=== PATIENT | female | born 1935 | race Two or more races ===

== ENCOUNTER 2021-08-15 13:10 | Inpatient (IN) | payer MEDICARE ==
[~2021-08-15] VITALS: Ht 162.6 cm; Wt 59.9 kg
[2021-08-15] MEDS ORDERED: SODIUM CHLORIDE 0.9% 1,000 ML IV ONE (13:30)
[2021-08-15 14:50] LABS: HEMATOCRIT. 39.9 % (36.0-48.0); HEMOGLOBIN. 13.5 g/dL (12.0-16.0); MEAN CORPUSCULAR HEMOGLOBIN 32.1 pg (28.0-32.0); MEAN CORPUSCULAR VOLUME 95.1 fL (81.0-99.0); MEAN PLATELET VOLUME 8.1 fl (7.4-10.4); PLATELET 259 x1000/uL (130-400); RED CELL DISTRIBUTION WIDTH 12.5 % (11.6-14.6)
[2021-08-15 14:58] LABS: CHLORIDE 105 mEq/L (98-107)
[2021-08-15 15:00] LABS: PROTHROMBIN TIME 10.5 sec (9.6-11.0)
[2021-08-15 15:20] LABS: PLATELET ESTIMATE NORMAL
[2021-08-15] MEDS ORDERED: HYDROCODONE/ACETAMINOPHEN 5/325MG TABLET PO PRN (16:15)
[2021-08-15 19:40] VITALS: BP 109/50
[2021-08-15 20:00] VITALS: BP 104/50
[2021-08-15] MEDS: MORPHINE SULFATE 2 MG/ML CPJ (NOT FOR IM USE) IV PRN (20:44)
[2021-08-15] MEDS ORDERED: CHOL400D2 PO (22:47)
[2021-08-15] MEDS ORDERED: ATOR20TA65 PO (22:47)
[2021-08-16] VITALS: BP 107/51
[2021-08-16 04:00] VITALS: BP 115/51
[2021-08-16 07:03] LABS: CHLORIDE 108 mEq/L (98-107)
[2021-08-16 07:06] LABS: BASOPHILS % 0.4 % (0.0-2.0); EOSINOPHILS % 0.4 % (0.0-5.0); HEMATOCRIT. 35.2 % (36.0-48.0); HEMOGLOBIN. 12.1 g/dL (12.0-16.0); LYMPHOCYTES % 14.7 % (20.0-50.0); MEAN CORPUSCULAR HEMOGLOBIN 33.1 pg (28.0-32.0); MEAN PLATELET VOLUME 8.8 fl (7.4-10.4); MONOCYTES % 9.4 % (2.0-8.0); NEUTROPHILS % 75.1 % (40.0-76.0); PLATELET 227 x1000/uL (130-400); RED BLOOD CELL COUNT 3.66 mill/uL (4.2-5.4); RED CELL DISTRIBUTION WIDTH 12.5 % (11.6-14.6)
[2021-08-16 08:00] VITALS: BP 133/60
[2021-08-16] MEDS ORDERED: INFLUENZA VACCINE 05/PF 0.5 ML SYRINGE IM ONE (10:00)
[2021-08-16] MEDS ORDERED: NALOXONE HCL 0.4MG/ML VIAL IV PRN (18:45)
[2021-08-16 20:00] VITALS: BP 116/59
[2021-08-16] MEDS: MORPHINE SULFATE 2 MG/ML CPJ (NOT FOR IM USE) IV PRN (21:46)
[2021-08-17] VITALS: BP 136/54
[2021-08-17 00:40] LABS: CLARITY URINE CLEAR (CLEAR); COLOR URINE YELLOW (YELLOW); KETONES URINE TRACE (NEGATIVE); LEUKOCYTE ESTERASE URINE NEGATIVE (NEGATIVE); NITRITE URINE NEGATIVE (NEGATIVE); OCCULT BLOOD URINE NEGATIVE (NEGATIVE); PROTEIN URINE NEGATIVE (NEGATIVE); SPECIFIC GRAVITY URINE 1.025 (1.005-1.030)
[2021-08-17] MEDS: MORPHINE SULFATE 2 MG/ML CPJ (NOT FOR IM USE) IV PRN (02:07)
[2021-08-17 04:00] VITALS: BP 135/55
[2021-08-17] MEDS ORDERED: VANCOMYCIN HCL 1 GM/VIAL ONE (06:52)
[2021-08-17] MEDS ORDERED: LIDOCAINE HCL/EPINEPHRINE 1%-EPI 1:100,000 20 ML VIAL ONE (06:52)
[2021-08-17] MEDS ORDERED: SODIUM CHLORIDE 0.9% INJ 10ML FLUSH IVF ONE (06:52)
[2021-08-17] MEDS ORDERED: POLYMYXIN B SULFATE 500000 UNITS/VIAL ONE (06:52)
[2021-08-17] MEDS ORDERED: FENTANYL CITRATE/PF 50MCG/ML 2ML VIAL ONE ×2 (07:33→08:16)
[2021-08-17] MEDS ORDERED: PHENYLEPHRINE HCL 10 MG/ML 1ML (IV VIAL) IV ONE (07:33)
[2021-08-17] MEDS ORDERED: MIDAZOLAM HCL 2 MG/2 ML VIAL ONE (07:33)
[2021-08-17] MEDS ORDERED: PROPOFOL 200MG/20ML VIAL IV ONE (07:34)
[2021-08-17] MEDS ORDERED: SUCCINYLCHOLINE CHLORIDE 200MG/10ML IV ONE (07:34)
[2021-08-17] MEDS ORDERED: ONDANSETRON HCL 4MG/2ML INJ ONE (07:34)
[2021-08-17] MEDS ORDERED: SODIUM CHLORIDE 0.9% 10ML VIAL ONE (07:34)
[2021-08-17] MEDS ORDERED: NEOSTIGMINE METHYLSULFATE 1MG/ML 10 ML VIAL ONE (07:34)
[2021-08-17] MEDS ORDERED: METOCLOPRAMIDE HCL 10MG/2ML VIAL ONE (07:34)
[2021-08-17] MEDS ORDERED: GLYCOPYRROLATE 0.2 MG/ML 2ML VIAL ONE (07:34)
[2021-08-17] MEDS ORDERED: ROCURONIUM BROMIDE 10MG/ML VIAL 5ML IV ONE (07:34)
[2021-08-17] MEDS ORDERED: CEFAZOLIN SODIUM 1000MG/VIAL ONE (07:34)
[2021-08-17] MEDS ORDERED: ROPIVACAINE HCL/PF EPIDURAL 0 ML EPI ONE (07:55)
[2021-08-17] MEDS ORDERED: ROPIVACAINE HCL 10MG/ML 20 ML VIAL EPI ONE (08:00)
[2021-08-17] MEDS ORDERED: LABETALOL HCL 5MG/ML VIAL 20ML IV ONE (08:11)
[2021-08-17] MEDS ORDERED: HYDROCODONE/ACETAMINOPHEN 5/325MG TABLET PO PRN (08:30)
[2021-08-17] MEDS ORDERED: NALOXONE HCL 0.4MG/ML VIAL IV PRN (08:45)
[2021-08-17 11:56] VITALS: BP 108/52
[2021-08-17 16:00] VITALS: BP 98/51
[2021-08-17] MEDS: CEFAZOLIN 2,000 MG in DEXT 5% WATER 100 ML IV SCH (16:44)
[2021-08-17 20:00] VITALS: BP 97/42
[2021-08-18] VITALS (7 sets, daily range): BP systolic 114–132; BP diastolic 45–78
[2021-08-18] MEDS: CEFAZOLIN 2,000 MG in DEXT 5% WATER 100 ML IV SCH ×3 (00:29→16:40)
[2021-08-18 07:27] LABS: BASOPHILS % 0.6 % (0.0-2.0); EOSINOPHILS % 0.8 % (0.0-5.0); HEMATOCRIT. 27.9 % (36.0-48.0); HEMOGLOBIN. 9.8 g/dL (12.0-16.0); LYMPHOCYTES % 13.2 % (20.0-50.0); MEAN CORPUSCULAR HEMOGLOBIN 33.7 pg (28.0-32.0); MEAN CORPUSCULAR VOLUME 95.9 fL (81.0-99.0); MEAN PLATELET VOLUME 8.9 fl (7.4-10.4); MONOCYTES % 11.2 % (2.0-8.0); NEUTROPHILS % 74.2 % (40.0-76.0); PLATELET 185 x1000/uL (130-400); RED BLOOD CELL COUNT 2.91 mill/uL (4.2-5.4); RED CELL DISTRIBUTION WIDTH 12.5 % (11.6-14.6)
[2021-08-18 07:31] LABS: CHLORIDE 106 mEq/L (98-107)
[2021-08-18] MEDS ORDERED: DOCUSATE SODIUM 250MG CAPSULE PO SCH (09:00)
[2021-08-18] MEDS ORDERED: POLYETHYLENE GLYCOL 3350 (17GM) 1 DOSE PACK PO SCH (13:00)
[2021-08-18] MEDS ORDERED: LACTULOSE 20G/30ML UDC PO PRN (13:15)
[2021-08-18] MEDS ORDERED: ENOXAPARIN 40MG/0.4ML SYR SUBCUT SCH (14:00)
[2021-08-18] MEDS ORDERED: FERROUS SULFATE 325MG TABLET PO SCH (17:50)
== END 2021-08-18 23:10 | DRG 481 ==
LOC: ER 13:10 → EDBEDREQ 16:17 → EDBEDREQTM 16:17 → ENRESERV 18:10 → 6EST 19:53
PROVIDERS: ADMIT Internal Medicine; ATTEND Internal Medicine
PROC: 0QS706Z Reposition Left Upper Femur with Intramedullary Internal Fixation Device, Open Approach (ICD-10-PCS; principal; 2021-08-17)
DX: S72.142A Displaced intertrochanteric fracture of left femur, initial encounter for closed fracture (principal); E44.1 Mild protein-calorie malnutrition; W01.0XXA Fall on same level from slipping, tripping and stumbling without subsequent striking against object, initial encounter; Z20.822 Contact with and (suspected) exposure to COVID-19; R26.9 Unspecified abnormalities of gait and mobility; R53.81 Other malaise; E78.5 Hyperlipidemia, unspecified; Y93.89 Activity, other specified; Y99.8 Other external cause status; Z68.22 Body mass index [BMI] 22.0-22.9, adult; Z79.899 Other long term (current) drug therapy; Z82.49 Family history of ischemic heart disease and other diseases of the circulatory system; Y92.098 Other place in other non-institutional residence as the place of occurrence of the external cause
CPT/HCPCS: 36415; 71045; 72170; 73502; 73552; 80048; 80053; 81003; 85025; 86850; 86900; 87426; 90686; 93005; 93306; 97161; 97166; 99285; C1713; J0330; J0690; J1650; J2250; J2270; J2370; J2405; J2704; J2710; J2765; J2795; J3010; J3370; J3490; J7030; J7060

== ENCOUNTER 2021-08-18 23:20 | Inpatient (IN) | payer MEDICARE, OTHER ==
[~2021-08-18] VITALS: Ht 157.5 cm; Wt 59.9 kg
[~2021-08-18 23:20] MED LIST: ATOR20TA65 PO; CHOL400D2 PO
[2021-08-19] VITALS: BP 113/50
[2021-08-19] MEDS ORDERED: MORPHINE SULFATE 2 MG/ML CPJ (NOT FOR IM USE) IV PRN (00:15)
[2021-08-19] MEDS ORDERED: NALOXONE HCL 0.4 MG/ML 1ML VIAL IV PRN (00:15)
[2021-08-19] MEDS ORDERED: HYDROCODONE/ACETAMINOPHEN 5/325MG TABLET PO PRN (00:15)
[2021-08-19] MEDS: CEFAZOLIN 2,000 MG in DEXT 5% WATER 100 ML IV SCH ×2 (02:40→10:13)
[2021-08-19 02:48] VITALS: BP 113/50
[2021-08-19] MEDS: HYDROCODONE/ACETAMINOPHEN 5/325MG TABLET PO PRN ×2 (06:41→23:50)
[2021-08-19 06:56] LABS: BASOPHILS % 0.8 % (0.0-2.0); EOSINOPHILS % 2.1 % (0.0-5.0); HEMATOCRIT. 26.7 % (36.0-48.0); HEMOGLOBIN. 9.2 g/dL (12.0-16.0); LYMPHOCYTES % 16.3 % (20.0-50.0); MEAN CORPUSCULAR HEMOGLOBIN 32.9 pg (28.0-32.0); MEAN CORPUSCULAR VOLUME 95.7 fL (81.0-99.0); MEAN PLATELET VOLUME 8.8 fl (7.4-10.4); MONOCYTES % 11.2 % (2.0-8.0); NEUTROPHILS % 69.6 % (40.0-76.0); PLATELET 200 x1000/uL (130-400); RED BLOOD CELL COUNT 2.79 mill/uL (4.2-5.4); RED CELL DISTRIBUTION WIDTH 12.5 % (11.6-14.6)
[2021-08-19 07:11] LABS: CHLORIDE 107 mEq/L (98-107)
[2021-08-19 08:30] VITALS: BP 112/55
[2021-08-19] MEDS: DOCUSATE SODIUM 250MG CAPSULE PO SCH (09:17)
[2021-08-19] MEDS: FERROUS SULFATE 325MG TABLET PO SCH ×3 (09:18→16:51)
[2021-08-19] MEDS: POLYETHYLENE GLYCOL 3350 (17GM) 1 DOSE PACK PO SCH (09:18)
[2021-08-19] MEDS ORDERED: ENOXAPARIN 40MG/0.4ML SYR SUBCUT SCH (14:00)
[2021-08-19 20:00] VITALS: BP 130/76
[2021-08-20] MEDS: LACTULOSE 20G/30ML UDC PO PRN ×2 (04:25→10:11)
[2021-08-20 06:06] LABS: BASOPHILS % 0.7 % (0.0-2.0); EOSINOPHILS % 2.2 % (0.0-5.0); HEMATOCRIT. 24.5 % (36.0-48.0); HEMOGLOBIN. 8.4 g/dL (12.0-16.0); LYMPHOCYTES % 19.6 % (20.0-50.0); MEAN CORPUSCULAR HEMOGLOBIN 33.2 pg (28.0-32.0); MEAN CORPUSCULAR VOLUME 96.8 fL (81.0-99.0); MEAN PLATELET VOLUME 8.6 fl (7.4-10.4); MONOCYTES % 10.9 % (2.0-8.0); NEUTROPHILS % 66.6 % (40.0-76.0); PLATELET 229 x1000/uL (130-400); RED BLOOD CELL COUNT 2.53 mill/uL (4.2-5.4); RED CELL DISTRIBUTION WIDTH 12.5 % (11.6-14.6)
[2021-08-20 06:13] LABS: CHLORIDE 106 mEq/L (98-107)
[2021-08-20 06:32] LABS: FOLIC ACID (FOLATE) SERUM 16.5 ng/mL (>5.38)
[2021-08-20 06:36] LABS: TOTAL IRON BINDING CAPACITY 175 ug/dL (250-450)
[2021-08-20 08:00] VITALS: BP 114/56
[2021-08-20] MEDS: POLYETHYLENE GLYCOL 3350 (17GM) 1 DOSE PACK PO SCH (10:10)
[2021-08-20] MEDS: FERROUS SULFATE 325MG TABLET PO SCH ×3 (10:10→17:55)
[2021-08-20] MEDS: DOCUSATE SODIUM 250MG CAPSULE PO SCH (10:10)
[2021-08-20] MEDS ORDERED: BISACODYL 10MG SUPP PR NR ×3 (10:30→21:30)
[2021-08-20] MEDS: LACTULOSE 20G/30ML UDC PO SCH ×3 (10:32→17:00)
[2021-08-20] MEDS ORDERED: BISACODYL 10MG SUPP PR ONE (10:45)
[2021-08-20] MEDS ORDERED: LACTULOSE 20G/30ML UDC PO PRN (11:00)
[2021-08-20] MEDS: ASCORBIC ACID 500 MG TABLET PO SCH (12:28)
[2021-08-20] MEDS: CYANOCOBALAMIN 1000MCG/ML VIAL IM SCH (12:28)
[2021-08-20] MEDS: ONDANSETRON 4MG ODT PO PRN (12:28)
[2021-08-20] MEDS: ENOXAPARIN 30MG/0.3ML SYR SUBCUT SCH (14:20)
[2021-08-20 15:58] LABS: CLARITY URINE CLEAR (CLEAR); COLOR URINE YELLOW (YELLOW); KETONES URINE 2+ (NEGATIVE); LEUKOCYTE ESTERASE URINE NEGATIVE (NEGATIVE); NITRITE URINE NEGATIVE (NEGATIVE); OCCULT BLOOD URINE NEGATIVE (NEGATIVE); PH URINE 5.5 (4.5-8.0); PROTEIN URINE TRACE (NEGATIVE); SPECIFIC GRAVITY URINE 1.027 (1.005-1.030)
[2021-08-20 20:00] VITALS: BP 130/90
[2021-08-21 08:00] VITALS: BP 137/89
[2021-08-21] MEDS: FERROUS SULFATE 325MG TABLET PO SCH ×3 (09:00→17:25)
[2021-08-21] MEDS: ONDANSETRON 4MG ODT PO PRN (09:40)
[2021-08-21] MEDS: DOCUSATE SODIUM 250MG CAPSULE PO SCH (09:41)
[2021-08-21] MEDS: CYANOCOBALAMIN 1000MCG/ML VIAL IM SCH (09:41)
[2021-08-21] MEDS: ASCORBIC ACID 500 MG TABLET PO SCH (09:42)
[2021-08-21] MEDS: POLYETHYLENE GLYCOL 3350 (17GM) 1 DOSE PACK PO SCH (09:42)
[2021-08-21] MEDS ORDERED: BISACODYL 10MG SUPP PR PRN (11:15)
[2021-08-21] MEDS ORDERED: BISACODYL 10MG SUPP PR NR (11:15)
[2021-08-21] MEDS: DEXT 5%/0.45% NACL 1000ML 1,000 ML IV SCH ×2 (12:54→13:33)
[2021-08-21] MEDS: ENOXAPARIN 30MG/0.3ML SYR SUBCUT SCH (14:05)
[2021-08-21] MEDS ORDERED: GUAIFENESIN-DM 200MG-20MG/10ML UDC PO PRN (15:30)
[2021-08-21] MEDS: HYDROCODONE/ACETAMINOPHEN 5/325MG TABLET PO PRN (17:24)
[2021-08-21 20:00] VITALS: BP 127/51
[2021-08-21] MEDS: GUAIFENESIN 600MG ER TABLET PO SCH (21:17)
[2021-08-22] MEDS: DEXT 5%/0.45% NACL 1000ML 1,000 ML IV SCH ×2 (04:20→13:28)
[2021-08-22 07:10] LABS: CHLORIDE 107 mEq/L (98-107)
[2021-08-22 07:18] LABS: BASOPHILS % 0.9 % (0.0-2.0); HEMATOCRIT. 24.1 % (36.0-48.0); HEMOGLOBIN. 8.2 g/dL (12.0-16.0); LYMPHOCYTES % 24.2 % (20.0-50.0); MEAN CORPUSCULAR HEMOGLOBIN 33.2 pg (28.0-32.0); MEAN PLATELET VOLUME 8.1 fl (7.4-10.4); MONOCYTES % 12.5 % (2.0-8.0); NEUTROPHILS % 59.4 % (40.0-76.0); PLATELET 288 x1000/uL (130-400); RED BLOOD CELL COUNT 2.46 mill/uL (4.2-5.4); RED CELL DISTRIBUTION WIDTH 12.7 % (11.6-14.6)
[2021-08-22 08:17] VITALS: BP 135/75
[2021-08-22] MEDS: DOCUSATE SODIUM 250MG CAPSULE PO SCH (09:17)
[2021-08-22] MEDS: CYANOCOBALAMIN 1000MCG/ML VIAL IM SCH (09:17)
[2021-08-22] MEDS: POLYETHYLENE GLYCOL 3350 (17GM) 1 DOSE PACK PO SCH (09:17)
[2021-08-22] MEDS: GUAIFENESIN 600MG ER TABLET PO SCH ×2 (09:17→21:44)
[2021-08-22] MEDS: FERROUS SULFATE 325MG TABLET PO SCH ×2 (09:17→13:00)
[2021-08-22] MEDS: ASCORBIC ACID 500 MG TABLET PO SCH (09:17)
[2021-08-22] MEDS ORDERED: POTASSIUM CHLORIDE 20MEQ TABLET SR PO NR (10:15)
[2021-08-22] MEDS: ONDANSETRON 4MG ODT PO PRN (10:54)
[2021-08-22] MEDS: ENOXAPARIN 30MG/0.3ML SYR SUBCUT SCH (14:00)
[2021-08-22] MEDS: METOCLOPRAMIDE HCL 10MG/2ML VIAL IV SCH (18:07)
[2021-08-22 20:00] VITALS: BP 126/67
[2021-08-23] MEDS: METOCLOPRAMIDE HCL 10MG/2ML VIAL IV SCH ×4 (00:25→17:58)
[2021-08-23] MEDS: DEXT 5%/0.45% NACL 1000ML 1,000 ML IV SCH ×2 (02:45→15:56)
[2021-08-23 07:38] LABS: CHLORIDE 108 mEq/L (98-107)
[2021-08-23 07:42] LABS: BASOPHILS % 0.5 % (0.0-2.0); EOSINOPHILS % 2.3 % (0.0-5.0); HEMATOCRIT. 25.1 % (36.0-48.0); HEMOGLOBIN. 8.7 g/dL (12.0-16.0); LYMPHOCYTES % 18.7 % (20.0-50.0); MEAN CORPUSCULAR HEMOGLOBIN 34.4 pg (28.0-32.0); MEAN CORPUSCULAR VOLUME 99.2 fL (81.0-99.0); MEAN PLATELET VOLUME 7.7 fl (7.4-10.4); MONOCYTES % 10.7 % (2.0-8.0); NEUTROPHILS % 67.8 % (40.0-76.0); PLATELET 258 x1000/uL (130-400); RED BLOOD CELL COUNT 2.53 mill/uL (4.2-5.4); RED CELL DISTRIBUTION WIDTH 12.7 % (11.6-14.6)
[2021-08-23 08:00] VITALS: BP 144/67
[2021-08-23] MEDS: GUAIFENESIN 600MG ER TABLET PO SCH ×2 (08:55→21:07)
[2021-08-23] MEDS: DOCUSATE SODIUM 250MG CAPSULE PO SCH (08:56)
[2021-08-23] MEDS: POLYETHYLENE GLYCOL 3350 (17GM) 1 DOSE PACK PO SCH (08:56)
[2021-08-23] MEDS: ACETAMINOPHEN 500MG TABLET PO PRN ×2 (08:56→21:18)
[2021-08-23] MEDS ORDERED: POTASSIUM CHLORIDE 20MEQ TABLET SR PO NR (12:00)
[2021-08-23] MEDS: ENOXAPARIN 30MG/0.3ML SYR SUBCUT SCH (13:52)
[2021-08-23 20:00] VITALS: BP 153/63
[2021-08-24] MEDS: METOCLOPRAMIDE HCL 10MG/2ML VIAL IV SCH ×4 (01:21→17:30)
[2021-08-24 06:10] LABS: CHLORIDE 109 mEq/L (98-107)
[2021-08-24] MEDS: DEXT 5%/0.45% NACL 1000ML 1,000 ML IV SCH (06:31)
[2021-08-24 06:36] LABS: BASOPHILS % 0.7 % (0.0-2.0); EOSINOPHILS % 3.1 % (0.0-5.0); HEMATOCRIT. 25.6 % (36.0-48.0); LYMPHOCYTES % 13.3 % (20.0-50.0); MEAN CORPUSCULAR HEMOGLOBIN 34.8 pg (28.0-32.0); MEAN CORPUSCULAR VOLUME 99.3 fL (81.0-99.0); MEAN PLATELET VOLUME 7.6 fl (7.4-10.4); MONOCYTES % 10.8 % (2.0-8.0); NEUTROPHILS % 72.1 % (40.0-76.0); PLATELET 225 x1000/uL (130-400); RED BLOOD CELL COUNT 2.58 mill/uL (4.2-5.4); RED CELL DISTRIBUTION WIDTH 12.8 % (11.6-14.6)
[2021-08-24] MEDS: ACETAMINOPHEN 500MG TABLET PO PRN (06:46)
[2021-08-24 08:03] VITALS: BP 144/88
[2021-08-24] MEDS ORDERED: POTASSIUM CHLORIDE 20MEQ TABLET SR PO SCH (08:45)
[2021-08-24] MEDS: DOCUSATE SODIUM 250MG CAPSULE PO SCH (09:08)
[2021-08-24] MEDS: HYDROCODONE/ACETAMINOPHEN 5/325MG TABLET PO PRN ×2 (09:08→13:43)
[2021-08-24] MEDS: POLYETHYLENE GLYCOL 3350 (17GM) 1 DOSE PACK PO SCH (09:08)
[2021-08-24] MEDS: GUAIFENESIN 600MG ER TABLET PO SCH ×2 (09:08→20:01)
[2021-08-24] MEDS: ENOXAPARIN 30MG/0.3ML SYR SUBCUT SCH (13:45)
[2021-08-24 17:06] LABS: 25-HYDROXY VITAMIN D3 22 ng/mL (.)
[2021-08-24 20:00] VITALS: BP 142/58
[2021-08-25] MEDS: METOCLOPRAMIDE HCL 10MG/2ML VIAL IV SCH ×5 (00:31→22:58)
[2021-08-25] MEDS: HYDROCODONE/ACETAMINOPHEN 5/325MG TABLET PO PRN (05:40)
[2021-08-25 08:00] VITALS: BP 133/60
[2021-08-25 08:24] LABS: HEMATOCRIT. 25.7 % (36.0-48.0); HEMOGLOBIN. 8.6 g/dL (12.0-16.0); MEAN CORPUSCULAR VOLUME 97.9 fL (81.0-99.0); MEAN PLATELET VOLUME 8.5 fl (7.4-10.4); PLATELET 144 x1000/uL (130-400); RED BLOOD CELL COUNT 2.62 mill/uL (4.2-5.4); RED CELL DISTRIBUTION WIDTH 13.2 % (11.6-14.6)
[2021-08-25 08:27] LABS: CHLORIDE 110 mEq/L (98-107)
[2021-08-25] MEDS: DOCUSATE SODIUM 250MG CAPSULE PO SCH (08:35)
[2021-08-25] MEDS: GUAIFENESIN 600MG ER TABLET PO SCH ×2 (08:35→20:15)
[2021-08-25] MEDS: POLYETHYLENE GLYCOL 3350 (17GM) 1 DOSE PACK PO SCH (08:36)
[2021-08-25 12:34] LABS: PLATELET ESTIMATE NORMAL
[2021-08-25] MEDS: ONDANSETRON 4MG ODT PO PRN (13:44)
[2021-08-25] MEDS: ENOXAPARIN 30MG/0.3ML SYR SUBCUT SCH (14:06)
[2021-08-25] MEDS ORDERED: BISACODYL 10MG SUPP PR NR (18:00)
[2021-08-25] MEDS ORDERED: CLONIDINE 0.1MG TABLET PO PRN (18:15)
[2021-08-25 20:00] VITALS: BP 131/64
[2021-08-26] MEDS: METOCLOPRAMIDE HCL 10MG/2ML VIAL IV SCH ×3 (06:10→18:02)
[2021-08-26 08:00] VITALS: BP 132/66
[2021-08-26] MEDS: GUAIFENESIN 600MG ER TABLET PO SCH ×2 (09:14→21:21)
[2021-08-26] MEDS: POLYETHYLENE GLYCOL 3350 (17GM) 1 DOSE PACK PO SCH (09:14)
[2021-08-26] MEDS: DOCUSATE SODIUM 250MG CAPSULE PO SCH (09:14)
[2021-08-26] MEDS: ENOXAPARIN 30MG/0.3ML SYR SUBCUT SCH (13:45)
[2021-08-26 20:00] VITALS: BP 118/56
[2021-08-27] MEDS: METOCLOPRAMIDE HCL 10MG/2ML VIAL IV SCH ×4 (00:15→17:11)
[2021-08-27 07:10] LABS: BASOPHILS % 0.8 % (0.0-2.0); EOSINOPHILS % 2.5 % (0.0-5.0); LYMPHOCYTES % 14.8 % (20.0-50.0); MEAN CORPUSCULAR HEMOGLOBIN 32.7 pg (28.0-32.0); MEAN CORPUSCULAR VOLUME 97.6 fL (81.0-99.0); MEAN PLATELET VOLUME 7.8 fl (7.4-10.4); MONOCYTES % 7.5 % (2.0-8.0); NEUTROPHILS % 74.4 % (40.0-76.0); PLATELET 164 x1000/uL (130-400); RED BLOOD CELL COUNT 2.77 mill/uL (4.2-5.4); RED CELL DISTRIBUTION WIDTH 14.4 % (11.6-14.6)
[2021-08-27 07:23] LABS: CHLORIDE 106 mEq/L (98-107)
[2021-08-27 08:00] VITALS: BP 120/56
[2021-08-27] MEDS: DOCUSATE SODIUM 250MG CAPSULE PO SCH (09:18)
[2021-08-27] MEDS: GUAIFENESIN 600MG ER TABLET PO SCH ×2 (09:18→21:20)
[2021-08-27] MEDS: POLYETHYLENE GLYCOL 3350 (17GM) 1 DOSE PACK PO SCH (09:19)
[2021-08-27] MEDS: ENOXAPARIN 30MG/0.3ML SYR SUBCUT SCH (17:12)
[2021-08-27] MEDS ORDERED: NALOXONE HCL 0.4MG/ML VIAL IV PRN (17:15)
[2021-08-27 20:00] VITALS: BP 147/65
[2021-08-28] MEDS: METOCLOPRAMIDE HCL 10MG/2ML VIAL IV SCH ×5 (00:20→23:17)
[2021-08-28 08:00] VITALS: BP 126/59
[2021-08-28] MEDS: DOCUSATE SODIUM 250MG CAPSULE PO SCH (09:00)
[2021-08-28] MEDS: POLYETHYLENE GLYCOL 3350 (17GM) 1 DOSE PACK PO SCH (09:00)
[2021-08-28] MEDS: GUAIFENESIN 600MG ER TABLET PO SCH ×2 (09:03→20:40)
[2021-08-28] MEDS: HYDROCODONE/ACETAMINOPHEN 5/325MG TABLET PO PRN (09:04)
[2021-08-28] MEDS: ENOXAPARIN 30MG/0.3ML SYR SUBCUT SCH (14:08)
[2021-08-28] MEDS: ACETAMINOPHEN 500MG TABLET PO PRN (17:26)
[2021-08-28 20:00] VITALS: BP_SYST 116
[2021-08-29] MEDS: METOCLOPRAMIDE HCL 10MG/2ML VIAL IV SCH ×3 (05:21→17:03)
[2021-08-29 08:00] VITALS: BP 126/51
[2021-08-29] MEDS: GUAIFENESIN 600MG ER TABLET PO SCH ×2 (08:14→20:47)
[2021-08-29] MEDS: HYDROCODONE/ACETAMINOPHEN 5/325MG TABLET PO PRN (08:15)
[2021-08-29] MEDS: DOCUSATE SODIUM 250MG CAPSULE PO SCH (08:16)
[2021-08-29] MEDS: POLYETHYLENE GLYCOL 3350 (17GM) 1 DOSE PACK PO SCH (08:16)
[2021-08-29] MEDS: ONDANSETRON 4MG ODT PO PRN (10:33)
[2021-08-29] MEDS: ENOXAPARIN 30MG/0.3ML SYR SUBCUT SCH (13:45)
[2021-08-29] MEDS: ACETAMINOPHEN 500MG TABLET PO PRN (18:09)
[2021-08-29 20:00] VITALS: BP 124/60
[2021-08-30] MEDS: METOCLOPRAMIDE HCL 10MG/2ML VIAL IV SCH ×4 (01:09→18:29)
[2021-08-30 08:00] VITALS: BP 139/81
[2021-08-30] MEDS: DOCUSATE SODIUM 250MG CAPSULE PO SCH (08:20)
[2021-08-30] MEDS: POLYETHYLENE GLYCOL 3350 (17GM) 1 DOSE PACK PO SCH (08:20)
[2021-08-30] MEDS: GUAIFENESIN 600MG ER TABLET PO SCH ×2 (08:20→20:38)
[2021-08-30] MEDS: ENOXAPARIN 30MG/0.3ML SYR SUBCUT SCH (15:26)
[2021-08-30] MEDS: HYDROCODONE/ACETAMINOPHEN 5/325MG TABLET PO PRN (18:30)
[2021-08-30 20:00] VITALS: BP 117/53
[2021-08-31] MEDS: METOCLOPRAMIDE HCL 10MG/2ML VIAL IV SCH ×4 (00:06→18:26)
[2021-08-31 08:00] VITALS: BP 120/51
[2021-08-31] MEDS: GUAIFENESIN 600MG ER TABLET PO SCH ×2 (08:56→21:17)
[2021-08-31] MEDS: POLYETHYLENE GLYCOL 3350 (17GM) 1 DOSE PACK PO SCH (08:56)
[2021-08-31] MEDS: DOCUSATE SODIUM 250MG CAPSULE PO SCH (08:56)
[2021-08-31] MEDS: ACETAMINOPHEN 500MG TABLET PO PRN (11:29)
[2021-08-31 11:34] LABS: CLARITY URINE TURBID (CLEAR); COLOR URINE YELLOW (YELLOW); KETONES URINE NEGATIVE (NEGATIVE); LEUKOCYTE ESTERASE URINE 3+ (NEGATIVE); NITRITE URINE POSITIVE (NEGATIVE); OCCULT BLOOD URINE 2+ (NEGATIVE); PROTEIN URINE 2+ (NEGATIVE); SPECIFIC GRAVITY URINE 1.012 (1.005-1.030); UROBILINOGEN URINE 0.2 E.U./dL (0.2-1.0)
[2021-08-31] MEDS: ENOXAPARIN 30MG/0.3ML SYR SUBCUT SCH (16:22)
[2021-08-31] MEDS ORDERED: ERGOCALCIFEROL 50000UNITS CAPSULE PO SCH (17:30)
[2021-08-31 20:00] VITALS: BP 129/55
[2021-09-01] MEDS: METOCLOPRAMIDE HCL 10MG/2ML VIAL IV SCH
[2021-09-01] MEDS ORDERED: METOCLOPRAMIDE HCL 10MG/2ML VIAL IV PRN (03:15)
[2021-09-01 07:07] LABS: BASOPHILS % 1.2 % (0.0-2.0); EOSINOPHILS % 4.1 % (0.0-5.0); HEMATOCRIT. 28.5 % (36.0-48.0); HEMOGLOBIN. 9.8 g/dL (12.0-16.0); LYMPHOCYTES % 20.8 % (20.0-50.0); MEAN CORPUSCULAR HEMOGLOBIN 33.1 pg (28.0-32.0); MEAN CORPUSCULAR VOLUME 96.3 fL (81.0-99.0); MEAN PLATELET VOLUME 7.5 fl (7.4-10.4); MONOCYTES % 8.7 % (2.0-8.0); NEUTROPHILS % 65.2 % (40.0-76.0); PLATELET 321 x1000/uL (130-400); RED BLOOD CELL COUNT 2.95 mill/uL (4.2-5.4); RED CELL DISTRIBUTION WIDTH 14.8 % (11.6-14.6)
[2021-09-01 08:00] VITALS: BP 120/65
[2021-09-01 08:00] LABS: CHLORIDE 107 mEq/L (98-107)
[2021-09-01] MEDS: GUAIFENESIN 600MG ER TABLET PO SCH ×2 (08:35→20:24)
[2021-09-01] MEDS: DOCUSATE SODIUM 250MG CAPSULE PO SCH (08:35)
[2021-09-01] MEDS: HYDROCODONE/ACETAMINOPHEN 5/325MG TABLET PO PRN (08:37)
[2021-09-01] MEDS: POLYETHYLENE GLYCOL 3350 (17GM) 1 DOSE PACK PO SCH (08:37)
[2021-09-01] MEDS ORDERED: LEVOFLOXACIN 500MG TABLET PO NR (11:00)
[2021-09-01] MEDS ORDERED: DOCU250C14 PO (11:23)
[2021-09-01] MEDS ORDERED: LEVO250T58 MT (11:23)
[2021-09-01] MEDS: ENOXAPARIN 30MG/0.3ML SYR SUBCUT SCH (16:41)
[2021-09-01 20:00] VITALS: BP 141/56
[2021-09-02 08:00] VITALS: BP 135/40
[2021-09-02] MEDS: GUAIFENESIN 600MG ER TABLET PO SCH (09:22)
[2021-09-02] MEDS: DOCUSATE SODIUM 250MG CAPSULE PO SCH (09:22)
[2021-09-02] MEDS: POLYETHYLENE GLYCOL 3350 (17GM) 1 DOSE PACK PO SCH (09:22)
[2021-09-02] MEDS ORDERED: LEVOFLOXACIN 250MG TABLET PO SCH (11:00)
[2021-09-02 11:27] VITALS: BP 134/65
== END 2021-09-02 12:50 | disposition home health service (06) | DRG 536 ==
PROVIDERS: ADMIT Physical Medicine & Rehabilitation Spinal Cord Injury Medicine; ATTEND Internal Medicine
DX: S72.002A Fracture of unspecified part of neck of left femur, initial encounter for closed fracture (principal); E44.0 Moderate protein-calorie malnutrition; N39.0 Urinary tract infection, site not specified; E78.5 Hyperlipidemia, unspecified; E87.6 Hypokalemia; I27.20 Pulmonary hypertension, unspecified; W18.39XA Other fall on same level, initial encounter; Y99.8 Other external cause status; B96.89 Other specified bacterial agents as the cause of diseases classified elsewhere; K59.00 Constipation, unspecified; E55.9 Vitamin D deficiency, unspecified; F06.34 Mood disorder due to known physiological condition with mixed features; K42.9 Umbilical hernia without obstruction or gangrene; I36.1 Nonrheumatic tricuspid (valve) insufficiency; D50.9 Iron deficiency anemia, unspecified; E53.8 Deficiency of other specified B group vitamins; R53.81 Other malaise; R26.89 Other abnormalities of gait and mobility; Z82.49 Family history of ischemic heart disease and other diseases of the circulatory system; Z90.710 Acquired absence of both cervix and uterus; Y93.89 Activity, other specified; Y92.007 Garden or yard of unspecified non-institutional (private) residence as the place of occurrence of the external cause; Z68.24 Body mass index [BMI] 24.0-24.9, adult; M79.609 Pain in unspecified limb; R05.9 Cough, unspecified
CPT/HCPCS: 36415; 71046; 74018; 80048; 80053; 80076; 81003; 82306; 82607; 82728; 82746; 83540; 83550; 84134; 84443; 85025; 87077; 87186; 92523; 92610; 93970; 97110; 97116; 97162; 97166; 97530; 97535; J0690; J1650; J2765; J3420; J7040; J7060; Q0162; A4315; A5200